=== PATIENT | male | born 1935 | race Caucasian/White ===

== ENCOUNTER 2023-01-26 00:10 | Emergency (ER) | payer MEDICARE, BC ==
[~2023-01-26] VITALS: Ht 170.2 cm; Wt 66.7 kg
[2023-01-26] MEDS ORDERED: CARB25TA3 PO (00:27)
[2023-01-26] MEDS ORDERED: TICA60TA PO (00:27)
[2023-01-26 01:24] LABS: BASOPHILS % (AUTO) 0.7 % (0.0-2.0); DIFFERENTIAL COMMENT 0; EOSINOPHILS # (AUTO) 0.1 K/uL (0.0-0.7); EOSINOPHILS % (AUTO) 1.3 % (0.0-7.0); HEMATOCRIT 33.7 % (36.7-47.1); HEMOGLOBIN 11.5 g/dL (12.5-16.3); LYMPHOCYTES # (AUTO) 0.4 K/uL (0.8-4.8); LYMPHOCYTES % (AUTO) 9.1 % (20.5-51.5); MEAN CORPUSCULAR HEMOGLOBIN 33.5 uug (23.8-33.4); MEAN CORPUSCULAR HGB CONC 34 g/dL (32.5-36.3); MEAN CORPUSCULAR VOLUME 98.1 fL (73.0-96.2); MONOCYTES # (AUTO) 0.5 K/uL (0.1-1.30); MONOCYTES % (AUTO) 10.3 % (0.0-11.0); NEUTROPHILS # (AUTO) 3.5 K/uL (1.8-8.9); NEUTROPHILS % (AUTO) 78.6 % (38.5-71.5); PLATELET COUNT (AUTO) 126 K/uL (152-348); RED BLOOD CELL COUNT(AUTO) 3.44 MIL/uL (4.06-5.63); RED CELL DISTRIBUTION WIDTH 23.9 % (12.1-16.2); WHITE BLOOD COUNT (AUTO) 4.4 K/uL (3.6-10.2)
[2023-01-26 01:59] LABS: CALCIUM 8.4 mg/dL (8.5-10.1); CREATININE 0.8 mg/dL (0.6-1.3)
[2023-01-26 02:11] LABS: MAGNESIUM 1.9 mg/dL (1.8-2.4)
[2023-01-26] MEDS ORDERED: FLAS1KIT2 TP (03:42)
[2023-01-26] MEDS ORDERED: FLAS1EAC2 MC (03:42)
[2023-01-26] MEDS ORDERED: CYANOCOBALAMIN 1000 MCG/ML VIAL IM ONE (03:45)
[2023-01-26] MEDS ORDERED: CYANOCOBALAMIN 1000 MCG/ML VIAL ONE (04:02)
[2023-01-26 09:02] VITALS: BP 129/81; TEMP 98; O2SAT 97
== END 2023-01-26 09:02 | disposition home or self-care (01) ==
LOC: ER 00:16
DX: G20 Parkinson's disease (principal); D61.818 Other pancytopenia; I25.2 Old myocardial infarction; Z88.0 Allergy status to penicillin; Z88.1 Allergy status to other antibiotic agents; Z88.8 Allergy status to other drugs, medicaments and biological substances; Z79.899 Other long term (current) drug therapy; W18.39XA Other fall on same level, initial encounter; Y93.89 Activity, other specified; Y92.89 Other specified places as the place of occurrence of the external cause; Y99.8 Other external cause status
CPT/HCPCS: 99283; 80048; 82550; 82607; 83735; 85025; 96372; J3420; 36415; A4663